=== PATIENT | female | born 1975 | race Caucasian/White ===

== ENCOUNTER 2022-07-10 19:14 | Emergency (ER) | payer BC ==
[~2022-07-10] VITALS: Ht 162.6 cm; Wt 108.6 kg
[2022-07-10 19:24] VITALS: TEMP 98.1
[2022-07-10] MEDS ORDERED: SYNTHROID0.125 MG/T PO (19:49)
[2022-07-10] MEDS ORDERED: JANUMXR1000-50 PO (19:49)
[2022-07-10] MEDS ORDERED: OZEMPIC0.25 MG/0. SQ (19:50)
[2022-07-10] MEDS ORDERED: MULTI VITAMINS1 TAB PO (19:50)
[2022-07-10] MEDS ORDERED: CLARITIN 1010 MG/TAB PO (19:50)
[2022-07-10 20:31] LABS: BASO # 0.1 K/mm3 (0.0-0.2); BASO % 0.5 % (0.0-2.0); EOS # 0.2 K/mm3 (0.0-0.7); EOS % 1.5 % (0.0-4.0); GRAN # 5.9 K/mm3 (1.4-6.5); GRAN % 56.6 % (42.2-75.2); LYMPH # 3.6 K/mm3 (1.2-3.4); LYMPH % 34.1 % (20.0-51.0); MEAN CELL VOLUME 91 fl (80.0-100.0); MEAN CORPUSCULAR HEMOGLOBIN 30 pg (27-31); MEAN CORPUSCULAR HGB CONC 33 g/dl (33.0-37.0); MEAN PLATELET VOLUME 9.3 fl (7.4-10.4); MONO # 0.7 K/mm3 (0.1-0.6); MONO % 7.1 % (1.7-9.3); PLATELET COUNT 349 K/mm3 (130-400); RED BLOOD COUNT 4.29 M/mm3 (4.10-5.30); REDCELL DISTRIBUTION WIDTH-CV 13.4 % (11.5-14.5)
[2022-07-10 20:41] LABS: PROTHROMBIN TIME 11.7 SECONDS (9.7-12.8)
[2022-07-10 20:46] LABS: ALBUMIN 3.8 gm/dL (3.5-5.0); BILIRUBIN,TOTAL 0.4 mg/dL (0.2-1.2); C-REACTIVE PROTEIN 1.47 mg/dL (0.00-0.50); CALCIUM 9.1 mg/dL (8.4-10.2); CREATININE, serum 1.1 mg/dL (0.57-1.11); POTASSIUM 4.2 mmol/L (3.5-4.5); TOTAL PROTEIN 7.9 gm/dL (6.2-8.1)
[2022-07-10 20:49] LABS: D-DIMER < 200.00 ng/mLDDu (200-230)
[2022-07-10 21:39] VITALS: BP 135/93; PULSE 98
== END 2022-07-10 21:48 | disposition home or self-care (01) ==
LOC: COL.ER 19:14
PROVIDERS: Nurse Practitioner
DX: M79.661 Pain in right lower leg (principal)

== ENCOUNTER → 2022-07-11 | Outpatient (CLI) | payer BC ==
[~2022-07-11] MED LIST: CLARITIN 1010 MG/TAB PO; JANUMXR1000-50 PO; MULTI VITAMINS1 TAB PO; OZEMPIC0.25 MG/0. SQ; SYNTHROID0.125 MG/T PO
== END ==
LOC: COL.VAS 07:52
DX: M79.661 Pain in right lower leg (principal)